=== PATIENT | female | born 1945 | race Caucasian/White ===

== ENCOUNTER → 2019-12-19 10:40 | Outpatient (CLI) | payer MEDICARE, SELFPAY ==
--- NOTE | 2019-12-19 10:49 | DI.RAD.S_ITS ---
PROCEDURE: XR CERVICAL SPINE 4V OR 5V INDICATIONS: cervical radiculopathy TECHNIQUE: 5 views of the cervical spine acquired. COMPARISON: None. FINDINGS: Bones: No fractures or dislocations to the C6 level. Multilevel degenerative endplate sclerosis and spurring. Diffuse facet arthropathy. Diffuse mild narrowing of the cervical disc spaces. Soft tissues: No prevertebral soft tissue swelling. On the left, mild diffuse bony foraminal narrowing throughout cervical spine. On the right, mild diffuse bony foraminal narrowing throughout the visualized cervical spine. IMPRESSION: Mild diffuse bilateral bony foraminal stenoses Mild multilevel cervical spondylosis Dictated by: Ciro Franco M.D. on 12/19/2019 at 13:11 Approved by: Ciro Franco M.D. on 12/19/2019 at 13:13
--- NOTE | 2019-12-19 10:49 | DI.RAD.S_ITS ---
PROCEDURE: XR THORACIC SPINE 3V INDICATIONS: thoracic pain TECHNIQUE: 2 views of the thoracic spine were acquired. COMPARISON: None. FINDINGS: Bones: No fractures or dislocations. No suspicious bony lesions. Multilevel degenerative endplate sclerosis and spurring. Diffuse facet arthropathy. Soft tissues: No paravertebral stripe thickening. IMPRESSION: Multilevel discogenic changes. No fracture Dictated by: Ciro Franco M.D. on 12/19/2019 at 13:06 Approved by: Ciro Franco M.D. on 12/19/2019 at 13:08
== END ==
PROVIDERS: PCP Family Medicine; Referring Provider Physical Medicine & Rehabilitation; Visit Provider Physical Medicine & Rehabilitation
DX: M54.6 Pain in thoracic spine (principal); M47.22 Other spondylosis with radiculopathy, cervical region; M47.24 Other spondylosis with radiculopathy, thoracic region; M48.02 Spinal stenosis, cervical region
CPT/HCPCS: 72050; 72072; 99214

== ENCOUNTER → 2020-01-21 11:25 | Outpatient (CLI) | payer MEDICARE, OTHER, SELFPAY ==
[2020-01-23 06:31] LABS: COVID19 Sendout Not Detected (Not Detect)
== END ==
PROVIDERS: PCP Family Medicine; Visit Provider Physician Assistant
DX: Z01.818 Encounter for other preprocedural examination (principal)
CPT/HCPCS: 87635

== ENCOUNTER 2020-01-24 09:41 | Outpatient (CLI) | payer MEDICARE, SELFPAY ==
[2020-01-24] VITALS (8 sets, daily range): BP systolic 111–163; BP diastolic 58–83; PULSE 65–83; RESP 15–16; TEMP 36.2; O2SAT 94–100
--- NOTE | 2020-01-24 09:46 | DI.RAD.S_ITS ---
PROCEDURE: PAIN C/T INTERLAMINAR INJECT INDICATIONS: CERVICAL STENOSIS COMPARISON: [facility], CR, XR CERVICAL SPINE 4V OR 5V, 12/19/2019, 10:58. FINDINGS: Fluoroscopic spot filming was performed to verify placement of spinal needles at the C6-C7 level(s), as labeled on the films. Appropriate location(s) of the needle tip(s) was confirmed by injection of iodinated contrast. IMPRESSION: Fluoroscopy for pain management. Dictated by: Deshawn Castillo M.D. on 01/24/2020 at 11:47 Approved by: Deshawn Castillo M.D. on 01/24/2020 at 11:48
[2020-01-24] MEDS: fentaNYL 100 MCG/2 ML INJ 50 MCG IV (11:00)
[2020-01-24] MEDS: DEXAMETHASONE 10 MG/ML VIAL 20 MG INJ (11:02)
[2020-01-24] MEDS: IOPAMIDOL 15 ML VIAL 3 ML INJ (11:03)
[2020-01-24] MEDS: BUPIVACAINE 0.25% (PF) VIAL 2 ML INJ (11:03)
[2020-01-24] MEDS: MIDAZOLAM 5 MG/5 ML VIAL IV (11:05)
--- NOTE | 2020-01-24 11:13 | P.PCN_ITS ---
Date/Time/Diagnoses Date of procedure: 01/24/20 Time of procedure: 11:14 Pre-procedure diagnosis: 1. CERVICAL STENOSIS, 2. CERVICAL HNP WITH UPPER EXTREMITY RADICULAR FEATURES, Post-procedure diagnosis: same Procedure Notes Procedure: 1. FLUORSCOPICALLY GUIDED CONTRAST CONTROLLED INTERLAMINAR EPIDURAL STEROID INJECTION - C6/7 TL BARBARA Indications: Jennifer is referred by for treatment of Cervical HNP with Upper Extremity Paresthesias. Physician: Fish Hall Total Fluoroscopy time (seconds): 19 Total sedation minutes: 24 Complications: none Procedure in detail & Post-procedure care: FINDINGS Cervical Stenosis due to disc deterioration and nerve root irritation and nerve root irritation DESCRIPTION OF PROCEDURE Fluoroscopically guided, contrast-controlled C6/7 translaminar epidural steroid injection with conscious sedation. Following review of allergy and review of potential side effects and complications, including, but not necessarily limited to, infection, allergic reaction, local tissue breakdown, temporary as well as permanent nerve injury, stroke, paralysis, and possible , the patient indicated that patient understood and agreed to proceed. An informed consent document was signed by the patient, witnessed by a nurse, and placed in the patient's chart. Additionally, other treatment options including modalities, medications, and physical therapy were reviewed with the patient. After review of previous anaesthesic history and IV conscious sedation the patient was deemed safe to proceed with today?s procedure with IV conscious sedation as ASA class II designation. Safety time-out was performed to confirm patient ID, procedure to be performed and site of procedure. IV sedation was accomplished with a combination of 3mg of Versed and 50mcg of Fentanyl administered by the RN after DO order, titrated to patient comfort during the course of the procedure while the patient remained responsive to all verbal commands. In the prone position, following sterile prep and drape of the cervical region, the C6/7 translaminar space was identified fluoroscopically. The skin was anesthetized via a 25-gauge 1.5-inch needle with 1% lidocaine solution. At this point, a 25-gauge, 2.5-inch short bevel spinal needle was atraumatically introduced and advanced under fluoroscopic guidance into epidural space at the C6/7 translaminar space. Depth was confirmed on lateral view. Radiological data, including multiple fluoroscopic views of the cervical spine, reveal a spinal needle at the C6/7 translaminar space. Lateral views then show placement of the needle in the epidural space. Subsequent views show contrast material flowing superiorly and inferiorly in the epidural space. DSA fluoroscopy with live contrast injection, once again, confirmed no vascular or intrathecal uptake. At this point, using loss of resistance technique with saline and air, the epidural space was entered. Following negative aspiration, injection of ap proximately 1.5 cc of Isovue-200 with live fluoroscopy in the AP view confirmed epidural flow in the epidural space without vascular or intrathecal uptake observed. Subsequently, a test dose of 1 cc of 1% lidocaine solution was injected and patient was observed for two minutes without signs or symptoms of complications, including abdominal pain, shortness of breath, bilateral upper or lower extremity weakness, nausea and vomiting, prior to steroid injection. At this point, 2cc or 20mg of dexamethasone was then injected without incident. The patient tolerated the procedure well without signs or symptoms of complications prior to being transferred to the recovery area for further monitoring, The patient was then transferred to the recovery area where they were observed for an appropriate period of time after the injection. The patient reported a VAS score of 6 prior to the procedure and a post-procedure VAS of 1. POST OP INSTRUCTIONS The patient was provided a Pain Log to continue to record their response to the target-specific procedure prior to follow-up visit with the referring provider. Additionally, specific post-injection care instructions and a contact number to our office were provided if concerns arise regarding possible complications associated with the procedure are suspected.
--- NOTE | 2020-01-24 15:42 | PC.NURSE ---
Pt tolerated procedure well. Vitals stable upon transfer to post procedure room with report given to JUAN Cook. IV Fentanyl and Versed given by Allegra Kearns RN. All other meds administered by Dr. Hall
--- NOTE | 2020-01-24 15:45 | PC.NURSE ---
reviewed green pain log with post injection instructions. Has no questions or concerns.
== END 2020-01-24 11:45 | disposition home or self-care (01) ==
LOC: RAD 09:46
PROVIDERS: PCP Family Medicine; Referring Provider Physical Medicine & Rehabilitation; Visit Provider Physical Medicine & Rehabilitation
DX: M48.02 Spinal stenosis, cervical region (principal); M50.123 Cervical disc disorder at C6-C7 level with radiculopathy; R20.2 Paresthesia of skin
CPT/HCPCS: 62321; 99152; J1100; J2250; J3010

== ENCOUNTER → 2020-03-19 11:09 | Outpatient (CLI) | payer MEDICARE, SELFPAY ==
--- NOTE | 2020-03-19 11:11 | DI.MRI.S_ITS ---
PROCEDURE: MR SHOULDER RT WO CON INDICATIONS: Chronic right shoulder pain TECHNIQUE: Noncontrast oblique coronal T2 fast spin echo with fat saturation, oblique sagittal T1 spin echo and T2 fast spin echo with fat saturation, axial T1 spin echo and T2 fast spin echo with fat saturation through the shoulder. COMPARISON: None. FINDINGS: Image quality: Excellent. Rotator cuff: Supraspinatus tendinopathy with partial thickness articular and bursal sided tear. No definite full-thickness rupture seen. This involves the critical zone and the footprint. Infraspinatus tendinopathy is also noted with low-grade articular and bursal surface fraying. Teres minor appear grossly intact. Subscapularis tendon appears grossly intact. Mild fatty infiltration of the supraspinatus and infraspinatus muscles. No definite atrophy. Bones and bursae: No bone marrow contusions or fractures. Moderate hypertrophic acromioclavicular joint degeneration. Acromion demonstrates conventional anatomy, without an os acromiale. Moderate subacromial-subdeltoid bursitis. Capsule and soft tissues: Labrum: Marked blunting and irregularity of the posterior labrum presumably sequela of chronic tear, versus advanced degeneration. Incidental sublabral foramen. Ill-defined fraying of the anteroinferior labrum for example image 13/5 also suggestive of chronic degenerative tear . Posterior subluxed appearance of the humeral head relative to the glenoid raising the possibility of microinstability. Long head of the biceps tendon intact. The rotator interval appears normal, without fibrosis. Coracohumeral ligament intact. IMPRESSION: Supraspinatus tendinopathy with partial thickness articular and bursal sided tear. No full-thickness defect identified Infraspinatus tendinopathy with mild articular and bursal surface fraying. Moderate subacromial-subdeltoid bursitis Chronic appearing degenerative tear of anteroinferior and posterior segments of the labrum. Posterior subluxed appearance of the humeral head relative to the glenoid raising the possibility of microinstability. Dictated by: Ciro Franco M.D. on 03/19/2020 at 13:55 Approved by: Ciro Franco M.D. on 03/19/2020 at 14:13
--- NOTE | 2020-03-19 11:11 | DI.RAD.S_ITS ---
PROCEDURE: XR SHOULDER RT MIN 2V INDICATIONS: Chronic right shoulder pain TECHNIQUE: To views of the shoulder were acquired. COMPARISON: [facility], MR, MR SHOULDER RT WO CON, 03/19/2020, 11:31. FINDINGS: Bones: No fractures or dislocations. No suspicious bony lesions. Visualized ribs appear intact. Severe acromioclavicular degenerative narrowing. Mild glenohumeral narrowing. Soft tissues: No suspicious soft tissue calcifications. Calcific tendinitis is present. IMPRESSION: Calcific tendinitis and severe acromioclavicular degenerative narrowing. Dictated by: Marion Harding M.D. on 03/19/2020 at 12:29 Approved by: Marion Harding M.D. on 03/19/2020 at 12:32
== END ==
PROVIDERS: PCP Family Medicine; Referring Provider Physical Medicine & Rehabilitation; Visit Provider Physical Medicine & Rehabilitation
DX: M25.511 Pain in right shoulder (principal); M75.111 Incomplete rotator cuff tear or rupture of right shoulder, not specified as traumatic; M75.51 Bursitis of right shoulder; M75.31 Calcific tendinitis of right shoulder; S43.491A Other sprain of right shoulder joint, initial encounter; G89.29 Other chronic pain
CPT/HCPCS: 73030; 73221

== ENCOUNTER → 2020-08-13 13:35 | Outpatient (CLI) | payer MEDICARE, SELFPAY ==
[2020-08-13 15:19] LABS: COVID19 -Nasal RAPID Negative (Negative)
== END ==
PROVIDERS: PCP Family Medicine; Visit Provider Physical Medicine & Rehabilitation
DX: Z20.822 Contact with and (suspected) exposure to COVID-19 (principal)
CPT/HCPCS: 87635; C9803

== ENCOUNTER 2020-08-14 12:23 | Outpatient (CLI) | payer MEDICARE, SELFPAY ==
[2020-08-14] VITALS (7 sets, daily range): BP systolic 107–168; BP diastolic 56–82; PULSE 64–75; RESP 10–17; TEMP 36.9; O2SAT 96–100
--- NOTE | 2020-08-14 12:25 | DI.RAD.S_ITS ---
PROCEDURE: PAIN C/T INTERLAMINAR INJECT INDICATIONS: SPONDYLOSIS COMPARISON: [facility], , PAIN C/T INTERLAMINAR INJECT, 01/24/2020, 10:01. FINDINGS: Fluoroscopic spot filming was performed to verify placement of spinal needles at the T8-T9 level(s), as labeled on the films. Appropriate location(s) of the needle tip(s) was confirmed by injection of iodinated contrast. IMPRESSION: Intraprocedural examination within normal limits. Dictated by: Sameer Salazar M.D. on 08/14/2020 at 13:12 Approved by: Sameer Salazar M.D. on 08/14/2020 at 13:22
[2020-08-14] MEDS: fentaNYL 100 MCG/2 ML INJ 50 MCG IV (13:15)
[2020-08-14] MEDS: MIDAZOLAM 5 MG/5 ML VIAL IV (13:15)
[2020-08-14] MEDS: IOPAMIDOL 15 ML VIAL 3 ML INJ (13:19)
[2020-08-14] MEDS: DEXAMETHASONE 10 MG/ML VIAL 30 MG INJ (13:20)
[2020-08-14] MEDS: BUPIVACAINE 0.25% (PF) VIAL 2 ML INJ (13:20)
--- NOTE | 2020-08-14 13:36 | PM.PROC.IR.1 ---
Date/Time/Diagnoses Date of procedure: 08/14/20 Time of procedure: 13:36 Pre-procedure diagnosis: Thoracic stenosis with HNP Post-procedure diagnosis: same Procedure Notes Procedure: Fluoroscopic guided, contrast controlled T8-9 translaminar epidural steroid injection with conscious sedation. Indications: Jennifer is referred by Dr. Rajput for treatment of thoracic DDD/DJD with radiculopathy Physician: Fish Hall Total Fluoroscopy time (seconds): 19 Total sedation minutes: 18 Complications: none Procedure in detail & Post-procedure care: DESCRIPTION OF PROCEDURE Fluoroscopic guided, contrast controlled T8-9 translaminar epidural steroid injection with conscious sedation. Following review of allergy review potential side effects and complications, including, but not necessarily limited to, infection, allergic reaction, local tissue breakdown, temporary as well as permanent nerve injury, stroke, paralysis and possible , the patient indicated that they understood and agreed to proceed. An informed consent document was signed by the patient, witnessed by the nurse, and placed in the patient's chart. Additionally other treatment options including modalities, medications and physical therapy were reviewed with the patient. After review of previous anaesthesic history and IV conscious sedation the patient was deemed safe to proceed with today's procedure with IV conscious sedation as ASA class II designation. Safety time-out was performed to confirm patient ID, procedure to be performed and site of procedure. IV sedation was accomplished with a combination of 3mg of Versed and 50mcg of Fentanyl administered by the RN after DO order, titrated to patient comfort during the course of the procedure while the patient remained responsive to all verbal commands In the prone position, following sterile prep and drape of the thoracic region the T8-9 translaminar space was identified fluoroscopically. The skin was anesthetized via 25 gauge 1.5inch needle with 1% lidocaine solution. At this point a 22gauge epidural needle was atraumatically introduced and advanced under fluoroscopic guidance into the region of the T8-9 translaminar space depth was confirmed on lateral view. Radiographic data, including multiple fluoroscopic views of the thoracic spine, reveals spinal needle at the T8-9 translaminar space. Lateral views then showed the placement of the needle in the epidural space. Subsequent view show contrast material flowing superiorly and inferiorly in the epidural space. No vascular or intrathecal uptake is observed. At this point using loss of resistance technique with saline and the epidural space was entered. This was confirmed followed negative aspiration and injection of approximately 1.5cc of Isovue 200 showed excellent epidural flow without vascular or intrathecal uptake. At this point, 1 cc of 1% lidocaine solution was admitted as a test dose and the patient was observed for an appropriate period of time without signs or symptoms of complications, including abdominal pain, shortness of breath, bilateral upper and lower extremity weakness, nausea and vomiting, prior to steroid injection. Subsequently, 3cc or 30mg of dexamethasone was then injected without incident. The patient tolerated the procedure well without signs of complications and subsequently was transferred to the recovery room for further monitoring. The patient was then transferred to the recovery area with their observed for an appropriate time after the injection. Patient reported a VAS score of 7 prior to the procedure and post-procedure VAS of 2.
== END 2020-08-14 13:55 | disposition home or self-care (01) ==
PROVIDERS: PCP Family Medicine; Referring Provider Physical Medicine & Rehabilitation; Visit Provider Physical Medicine & Rehabilitation
DX: M48.04 Spinal stenosis, thoracic region (principal); M51.14 Intervertebral disc disorders with radiculopathy, thoracic region
CPT/HCPCS: 62321; 99152; J1100; J2250; J3010

== ENCOUNTER → 2020-11-22 11:43 | Outpatient (CLI) | payer MEDICARE, SELFPAY ==
--- NOTE | 2020-11-22 11:47 | DI.MRI.S_ITS ---
PROCEDURE: MR CERVICAL SPINE WO CON INDICATIONS: Radiculopathy, cervical region TECHNIQUE: Noncontrast sagittal T1 spin echo and T2 fast spin echo, sagittal STIR, foraminal oblique sagittal T2 fast spin echo, and axial gradient echo or T2 fast spin echo through the cervical spine. COMPARISON: [facility], RG, MRI C-SPINE W/O CONTRAST, 11/10/2019, 13:13. [facility], CR, XR CERVICAL SPINE 4V OR 5V, 12/19/2019, 10:58. FINDINGS: Image quality: This examination is limited by involuntary motion artifact. Alignment and Curvature: There is normal bony alignment. Bone Marrow: Marrow demonstrates normal overall signal. Spinal Cord: Visualized spinal cord has normal size and signal. No cerebellar tonsillar herniation. Paraspinous Soft Tissues: No paravertebral masses. Prevertebral soft tissues are normal in thickness. C2-C3: Normal appearance. C3-C4: The disc height is well-preserved. Loss of disc signal is seen at this level. A mild degree of generalized disc osteophyte complex is seen. There is [id number] right-sided and moderate left-sided facet hypertrophy seen. There is moderate to severe left-sided and moderate right-sided neural foraminal narrowing seen. No significant central canal narrowing is seen. When comparison is made with the prior examination, these findings are similar. C4-C5: Mild loss of disc height is seen. Loss of disc signal is seen. Moderate generalized disc osteophyte complex is seen. At least moderate facet hypertrophy is seen. There is moderate to severe left-sided and at least moderate right-sided neural foraminal narrowing seen. Moderate central canal narrowing is seen. These imaging findings have progressed compared to the prior study. C5-C6: The disc height is well-preserved. Loss of disc signal is seen at this level. Moderate generalized disc osteophyte complex is seen. Moderate facet joint hypertrophy is seen. There is moderate right-sided and [id number] left-sided neural foraminal narrowing seen. Minimal central canal narrowing is seen. When comparison is made with the prior examination, these findings are similar. C6-C7: The disc height is well-preserved. Loss of disc signal is seen at this level. A mild degree of generalized disc osteophyte complex is seen. Mild facet joint hypertrophy is seen. No significant neural foraminal or central canal narrowing can be seen. Stable from the prior study. C7-T1: No significant abnormality is seen. IMPRESSION: Multiple levels of cervical spine degenerative change are seen, which are slightly progressed at the C4-C5 level compared to the prior outside MRI. Dictated by: Sameer Salazar M.D. on 11/22/2020 at 12:47 Approved by: Sameer Salazar M.D. on 11/22/2020 at 12:51
== END ==
PROVIDERS: PCP Family Medicine; Referring Provider Orthopaedic Surgery; Visit Provider Orthopaedic Surgery
DX: M47.22 Other spondylosis with radiculopathy, cervical region (principal)
CPT/HCPCS: 72141